=== PATIENT | male | born 2005 | race African-American/Black ===

== ENCOUNTER 2023-12-31 13:57 | Emergency (ER) | payer MEDICAID ==
[~2023-12-31] VITALS: Ht 180.3 cm; Wt 91.7 kg
[2023-12-31 15:05] LABS: Hemoglobin 15.6 g/dL (13.5-17.5); Mean Corpuscular Hemoglobin 28.8 pg (28.0-32.0); Mean Corpuscular Hgb Conc. 33.1 g/dL (32.0-36.0); Red Cell Distribution Width 13.7 % (11.8-14.3)
[2023-12-31] MEDS: IPRATROPIUM BROM 0.5 MG/2.5ML INH SOL NEB ONE (15:11)
[2023-12-31] MEDS: ALBUTEROL SULF 2.5 MG/0.5ML(0.5%) NEB SOLN NEB ONE (15:11)
[2023-12-31 15:15] LABS: Albumin 4.7 g/dL (3.2-4.8); Alkaline Phosphatase 77 U/L (46-116); Anion Gap 3 (5-15); Aspartate Aminotransferase 18 U/L (13-40); BUN/Creatinine Ratio 4.8 (10.0-20.0); Bilirubin, Total 0.5 mg/dL (0.2-1.0); Blood Urea Nitrogen 6 mg/dL (9-23); Calcium 9.6 mg/dL (8.5-10.1); Carbon Dioxide 29 mmol/L (20-30); Chloride 108 mmol/L (98-107); Glucose 93 mg/dL (74-106); Potassium 4.1 mmol/L (3.5-5.1); Sodium 140 mmol/L (136-145); Total Protein 6.9 g/dL (5.7-8.2)
[2023-12-31 15:17] LABS: Alanine Aminotransferase < 9 U/L (7-40)
[2023-12-31 15:18] LABS: Band Neutrophils % (manual) 0; Basophils % (manual) 0 (0.0-2.0); Blast Cells 0; Eosinophils % (manual) 0 (0-7); Metamyelocytes % 0; Myelocytes % 0; Promyelocytes % 0
[2023-12-31 15:49] LABS: Lymphocytes % (manual) 25 (10.0-50.0); Monocytes % (manual) 20 (0-12); Platelet Estimate Adequate; RBC Morphology Normal; Reactive Lymphocytes 1
[2023-12-31 17:28] LABS: Urine Bacteria FEW /hpf (None Seen); Urine Blood Negative /uL (Negative); Urine Clarity Clear (Clear); Urine Color Yellow (Yellow); Urine Mucus FEW (None Seen); Urine Protein, UAD 1+ (Negative); Urine Specific Gravity 1.036 (1.001-1.035); Urine WBC 1 /hpf (0 - 3)
[2023-12-31 17:34] LABS: Amphetamine Screen, Urine Neg (NEGATIVE); Barbiturate Scree,Urine Neg (NEGATIVE); Benzodiazephine Screen, Urine Neg (NEGATIVE); Cannabinoid Screen, Urine Pos (NEGATIVE); Cocaine Screen, Urine Neg (NEGATIVE); Opiate Scree,Urine Neg (NEGATIVE); Phencyclidine Screen, Urine Neg (NEGATIVE)
[2023-12-31 18:17] VITALS: BP 135/71; PULSE 91; TEMP 97.8
[2023-12-31 18:18] VITALS: RESP 20; O2SAT 98
== END 2023-12-31 18:19 | disposition home or self-care (01) ==
LOC: ER 13:57
DX: F12.10 Cannabis abuse, uncomplicated (principal); F17.208 Nicotine dependence, unspecified, with other nicotine-induced disorders; R07.89 Other chest pain; Z79.899 Other long term (current) drug therapy
CPT/HCPCS: 36415; 71045; 80053; 80307; 81001; 83605; 83880; 84484; 85007; 85027; 85379; 93005; 94640; 99285; J7644